=== PATIENT | female | born 1950 ===

== ENCOUNTER 2024-12-26 05:37 | Day surgery (SDC) | payer OTHER ==
[2024-12-24 10:34] VITALS: BP 150/87
[~2024-12-26] VITALS: Ht 167.6 cm; Wt 72.1 kg
[~2024-12-26 05:37] MED LIST: COZAAR50 MG PO; GLIPIZIDE10 MG PO; JANUMET XR 1001 EACH PO; LIPITOR20 MG PO; SYNTHROID50 MCG PO
[2024-12-26] MEDS ORDERED: CEFAZOLIN SODIUM 1,000 MG VIAL ONE (06:43)
[2024-12-26] MEDS ORDERED: LIDOCAINE HCL 1%/EPINEPHRINE 20ML VIAL IJ ONE (07:06)
[2024-12-26] MEDS ORDERED: HEPARIN SODIUM,PORCINE 500 UNITS/5 ML VIAL IV ONE ×2 (07:06→08:05)
[2024-12-26] MEDS ORDERED: BUPIVACAINE HCL/MPF 0.5% 30ML VIAL ONE (07:07)
[2024-12-26] MEDS ORDERED: TRAMADOL HCL50 MG PO (10:59)
== END 2024-12-26 12:05 | disposition home or self-care (01) ==
LOC: CIR.AMB 05:37
PROVIDERS: ATTEND Surgery
DX: C21.1 Malignant neoplasm of anal canal (principal); I10 Essential (primary) hypertension; E11.9 Type 2 diabetes mellitus without complications; E03.8 Other specified hypothyroidism
CPT/HCPCS: 36561; C1751